=== PATIENT | female | born 1950 | race Caucasian/White ===

== ENCOUNTER 2019-12-15 18:32 | Inpatient (IN) | payer MEDICARE, OTHER ==
[~2019-12-15] VITALS: Ht 165.1 cm; Wt 81.6 kg
[2019-12-15] MEDS ORDERED: MORPHINE SULFATE INJ 4 MG/ML INJ 1ML IV NR (18:45)
[2019-12-15] MEDS ORDERED: MEROPENEM 1GM 100 ML IV SCH (18:45)
[2019-12-15 19:30] LABS: BASOPHILS # (AUTO) 0.1 (0.0-0.1); BASOPHILS % 0.9 % (0.0-1.0); EOSINOPHILS # (AUTO) 0.4 (0.0-0.4); EOSINOPHILS % 6.3 % (0.0-6.0); HEMATOCRIT 38.9 % (34.2-44.1); HEMOGLOBIN 12.8 g/dL (12.0-16.0); LYMPHOCYTES # (AUTO) 2.1 (1.0-3.2); LYMPHOCYTES % 31.4 % (18.0-39.1); MEAN CORPUSCULAR HEMOGLOBIN 28.9 pg (28-32); MEAN CORPUSCULAR HGB CONC 32.9 g/dL (31-35); MEAN CORPUSCULAR VOLUME 87.8 fL (81-99); MONOCYTES # (AUTO) 0.4 (0.2-0.8); MONOCYTES % 6.3 % (4.4-11.3); NEUTROPHILS # (AUTO) 3.6 (2.1-6.9); NEUTROPHILS % 54.9 % (38.7-80.0); PLATELET COUNT 248 x10e3/uL (140-360); RED BLOOD COUNT 4.43 x10e6/uL (3.6-5.1); RED CELL DISTRIBUTION WIDTH 13.8 % (11.7-14.4)
[2019-12-15 19:55] LABS: ALANINE AMINOTRANSFERASE 12 IU/L (0-55); ALBUMIN 4.3 g/dL (3.5-5.0); ALBUMIN/GLOBULIN RATIO 1.4 (0.8-2.0); ALKALINE PHOSPHATASE 91 IU/L (40-150); BLOOD UREA NITROGEN 14 mg/dL (7-26); BUN/CREATININE RATIO 19 (6-25); CALCIUM 9.8 mg/dL (8.4-10.2); CARBON DIOXIDE 25 mmol/L (22-29); CHLORIDE 108 mmol/L (98-107); CREATININE, SERUM 0.74 mg/dL (0.57-1.11); EST GLOMERULAR FILTRATION RATE > 60 ML/MIN (60-); GLUCOSE 125 mg/dL (74-118); SODIUM 143 mmol/L (136-145)
[2019-12-15] MEDS: SODIUM CHLORIDE 0.9% 1000ML 1,000 ML IV SCH (21:12)
[2019-12-15 21:58] LABS: CLARITY,URINE SL CLOUDY (CLEAR); COLOR,URINE YELLOW (YELLOW); LEUKOCYTE ESTERASE ,URINE NEGATIVE (NEGATIVE); NITRITE,URINE NEGATIVE (NEGATIVE)
[2019-12-15 21:59] LABS: BILIRUBIN,URINE NEGATIVE (NEGATIVE); KETONES,URINE NEGATIVE (NEGATIVE); PROTEIN,URINE DIPSTICK NEGATIVE (NEGATIVE); URINE UROBILINOGEN 0.2 mg/dL (0.2 - 1)
[2019-12-15] MEDS: ONDANSETRON HCL INJ 2MG/ML 2ML 2 MG/ML VIAL IV PRN (23:01)
[2019-12-15] MEDS: MORPHINE SULFATE 2 MG/ML SYR 1ML IV PRN (23:01)
[2019-12-16] VITALS (9 sets, daily range): BP systolic 115–136; BP diastolic 50–86
[2019-12-16] MEDS ORDERED: INFLUENZA VIRUS VAC SPLIT INJ 0.5 ML SYR IM SCH (01:30)
[2019-12-16] MEDS: SODIUM CHLORIDE 0.9% 1000ML 1,000 ML IV SCH ×3 (01:30→19:08)
[2019-12-16] MEDS ORDERED: melatonin PO (02:27)
[2019-12-16] MEDS ORDERED: HYDROCODON-ACE1 EAC9 PO (02:27)
[2019-12-16] MEDS ORDERED: GABAPENTIN300 MG PO (02:27)
[2019-12-16] MEDS ORDERED: PRINIVIL20 MG PO (02:27)
[2019-12-16] MEDS ORDERED: METHOCARBAMOL750 MG PO (02:27)
[2019-12-16] MEDS ORDERED: NORCO 5-325 TA1 EACH PO (02:27)
[2019-12-16] MEDS ORDERED: METOPROLOL SUCC25 MG PO (02:27)
[2019-12-16] MEDS ORDERED: VITAMIN D3250 MC1 PEG (02:27)
[2019-12-16] MEDS ORDERED: METFORMIN HCL500 MG PO (02:27)
[2019-12-16] MEDS ORDERED: CRESTOR10 MG PO (02:27)
[2019-12-16] MEDS ORDERED: NIFEDIPINE ER30 M1 PO (02:27)
[2019-12-16] MEDS ORDERED: NITROFURANTOIN100 MG PO (02:27)
[2019-12-16] MEDS ORDERED: TOVIAZ8 MG PO (02:27)
[2019-12-16] MEDS ORDERED: LYRICA75 MG PO (02:27)
[2019-12-16] MEDS ORDERED: NORCO 10-325 T1 EACH PO (02:29)
[2019-12-16] MEDS: ONDANSETRON HCL INJ 2MG/ML 2ML 2 MG/ML VIAL IV PRN (04:45)
[2019-12-16] MEDS: MORPHINE SULFATE 2 MG/ML SYR 1ML IV PRN ×2 (04:45→11:45)
[2019-12-16 06:40] LABS: BASOPHILS # (AUTO) 0.1 (0.0-0.1); BASOPHILS % 1.1 % (0.0-1.0); EOSINOPHILS # (AUTO) 0.4 (0.0-0.4); EOSINOPHILS % 7.5 % (0.0-6.0); HEMATOCRIT 33.8 % (34.2-44.1); HEMOGLOBIN 11.2 g/dL (12.0-16.0); LYMPHOCYTES # (AUTO) 2.3 (1.0-3.2); MEAN CORPUSCULAR HEMOGLOBIN 29.2 pg (28-32); MEAN CORPUSCULAR HGB CONC 33.1 g/dL (31-35); MONOCYTES # (AUTO) 0.4 (0.2-0.8); MONOCYTES % 7.9 % (4.4-11.3); NEUTROPHILS # (AUTO) 2.4 (2.1-6.9); NEUTROPHILS % 42.5 % (38.7-80.0); PLATELET COUNT 198 x10e3/uL (140-360); RED BLOOD COUNT 3.84 x10e6/uL (3.6-5.1); RED CELL DISTRIBUTION WIDTH 13.8 % (11.7-14.4)
[2019-12-16 07:12] LABS: ALANINE AMINOTRANSFERASE 10 IU/L (0-55); ALBUMIN 3.5 g/dL (3.5-5.0); ALBUMIN/GLOBULIN RATIO 1.3 (0.8-2.0); ALKALINE PHOSPHATASE 76 IU/L (40-150); ANION GAP 11.1 mmol/L (8-16); BLOOD UREA NITROGEN 9 mg/dL (7-26); BUN/CREATININE RATIO 15 (6-25); CALCIUM 8.5 mg/dL (8.4-10.2); CARBON DIOXIDE 26 mmol/L (22-29); CHLORIDE 110 mmol/L (98-107); CREATININE, SERUM 0.62 mg/dL (0.57-1.11); EST GLOMERULAR FILTRATION RATE > 60 ML/MIN (60-); GLUCOSE 95 mg/dL (74-118); POTASSIUM 4.1 mmol/L (3.5-5.1); SODIUM 143 mmol/L (136-145)
[2019-12-16] MEDS ORDERED: HYDRALAZINE HCL 20 MG/ML VIAL IV PRN (08:00)
[2019-12-16] MEDS ORDERED: POLYETHYLENE GLYCOL 3350 17 GM PACK PO PRN (08:00)
[2019-12-16] MEDS ORDERED: TEMAZEPAM 15 MG CAP PO PRN (08:00)
[2019-12-16] MEDS ORDERED: VITAMIN C1500 MG (08:26)
[2019-12-16] MEDS ORDERED: VITAMIN D310 MCG (08:26)
[2019-12-16] MEDS: ACETAMINOPHEN 325 MG TAB PO PRN (08:30)
[2019-12-16] MEDS: FAMOTIDINE 20 MG/2 ML VIAL IV SCH ×3 (09:00→19:08)
[2019-12-16] MEDS ORDERED: MEROPENEM 1GM 100 ML IV SCH (09:00)
[2019-12-16] MEDS: DOCUSATE SODIUM 100 MG CAP PO SCH ×2 (09:02→19:08)
[2019-12-16] MEDS ORDERED: METHOCARBAMOL 750 MG TAB PO PRN (18:30)
[2019-12-16] MEDS: MEROPENEM 1GM 100 ML IV SCH ×2 (19:08→22:00)
[2019-12-16] MEDS: GABAPENTIN 300 MG CAP PO SCH (20:51)
[2019-12-16] MEDS: SIMVASTATIN 40 MG TAB PO SCH (20:51)
[2019-12-16] MEDS: ASCORBIC ACID 500 MG TAB PO SCH (20:51)
[2019-12-16] MEDS ORDERED: MELATONIN 3 MG TAB PO PRN (21:00)
[2019-12-16] MEDS: HYDROCODONE/APAP 10MG-325MG TAB PO PRN (23:45)
[2019-12-17] VITALS (8 sets, daily range): BP systolic 128–143; BP diastolic 63–80
[2019-12-17] MEDS: MORPHINE SULFATE 2 MG/ML SYR 1ML IV PRN (00:55)
[2019-12-17 05:35] LABS: BASOPHILS % 0.8 % (0.0-1.0); EOSINOPHILS # (AUTO) 0.4 (0.0-0.4); EOSINOPHILS % 7.6 % (0.0-6.0); HEMATOCRIT 31.5 % (34.2-44.1); HEMOGLOBIN 10.3 g/dL (12.0-16.0); LYMPHOCYTES # (AUTO) 2.2 (1.0-3.2); LYMPHOCYTES % 46.2 % (18.0-39.1); MEAN CORPUSCULAR HEMOGLOBIN 28.6 pg (28-32); MEAN CORPUSCULAR HGB CONC 32.7 g/dL (31-35); MEAN CORPUSCULAR VOLUME 87.5 fL (81-99); MONOCYTES # (AUTO) 0.4 (0.2-0.8); MONOCYTES % 7.6 % (4.4-11.3); NEUTROPHILS # (AUTO) 1.8 (2.1-6.9); NEUTROPHILS % 37.6 % (38.7-80.0); PLATELET COUNT 191 x10e3/uL (140-360); RED CELL DISTRIBUTION WIDTH 13.6 % (11.7-14.4)
[2019-12-17] MEDS ORDERED: BENZONATATE 100 MG CAP PO PRN (05:45)
[2019-12-17 06:03] LABS: ANION GAP 10.8 mmol/L (8-16); BLOOD UREA NITROGEN 7 mg/dL (7-26); BUN/CREATININE RATIO 12 (6-25); CALCIUM 8.7 mg/dL (8.4-10.2); CARBON DIOXIDE 27 mmol/L (22-29); CHLORIDE 110 mmol/L (98-107); CHOLESTEROL 111 MD/DL (0-199); CREATININE, SERUM 0.59 mg/dL (0.57-1.11); EST GLOMERULAR FILTRATION RATE > 60 ML/MIN (60-); GLUCOSE 101 mg/dL (74-118); HDL CHOLESTEROL 37 MG/DL (40-60); LDL CHOLESTEROL 49 MG/DL (60-130); MAGNESIUM 1.6 MG/DL (1.3-2.1); PHOSPHORUS 3.1 MG/DL (2.3-4.7); POTASSIUM 3.8 mmol/L (3.5-5.1); SODIUM 144 mmol/L (136-145); TRIGLYCERIDES 125 MG/DL (0-149)
[2019-12-17] MEDS: MEROPENEM 1GM 100 ML IV SCH ×3 (06:09→21:42)
[2019-12-17] MEDS ORDERED: ALBUTEROL SULFATE HFA 8GM INHALATION AEROSOL INH PRN (06:15)
[2019-12-17 06:23] LABS: THYROID STIMULATING HORMONE 1.473 uIU/mL (0.350-4.940)
[2019-12-17] MEDS: METFORMIN HCL 500 MG TAB PO SCH ×2 (09:00→17:01)
[2019-12-17] MEDS ORDERED: NON-FORMULARY MEDICATION (Cholecalciferol (Vitamin D3) (Vitamin D3) 1 CAP) PEG SCH (09:00)
[2019-12-17] MEDS: FESOTERODINE FUMARATE PO SCH (09:00)
[2019-12-17] MEDS: DOCUSATE SODIUM 100 MG CAP PO SCH ×2 (09:46→16:23)
[2019-12-17] MEDS: PREGABALIN 75 MG CAP PO SCH ×2 (09:47→16:23)
[2019-12-17] MEDS: GABAPENTIN 300 MG CAP PO SCH ×3 (09:47→21:42)
[2019-12-17] MEDS: METOPROLOL SUCCINATE 25 MG TAB XL PO SCH (09:48)
[2019-12-17] MEDS: LISINOPRIL 20 MG TAB PO SCH (09:48)
[2019-12-17] MEDS: CHOLECALCIFEROL 1,000 UNIT TAB PO SCH (09:49)
[2019-12-17] MEDS: FAMOTIDINE 20 MG/2 ML VIAL IV SCH ×2 (09:49→16:23)
[2019-12-17] MEDS: ASCORBIC ACID 500 MG TAB PO SCH ×3 (09:49→21:42)
[2019-12-17] MEDS: HYDROCODONE/APAP 10MG-325MG TAB PO PRN ×3 (10:29→22:55)
[2019-12-17] MEDS ORDERED: ASPIRIN EC81 MG PO (10:35)
[2019-12-17] MEDS ORDERED: CLOPIDOGREL75 MG PO (10:35)
[2019-12-17] MEDS: NIFEDIPINE CR 30 MG TAB PO SCH (12:18)
[2019-12-17] MEDS: ASPIRIN 81 MG ENTERIC COATED PO SCH (16:23)
[2019-12-17] MEDS: CLOPIDOGREL BISULFATE 75 MG TAB PO SCH (16:23)
[2019-12-17] MEDS: SIMVASTATIN 40 MG TAB PO SCH (21:42)
[2019-12-18 01:46] VITALS: BP 129/66
[2019-12-18] MEDS: ACETAMINOPHEN 325 MG TAB PO PRN (03:25)
[2019-12-18] MEDS: MEROPENEM 1GM 100 ML IV SCH ×2 (05:32→13:00)
[2019-12-18 06:05] LABS: BASOPHILS % 0.8 % (0.0-1.0); EOSINOPHILS # (AUTO) 0.4 (0.0-0.4); EOSINOPHILS % 7.4 % (0.0-6.0); HEMATOCRIT 34.6 % (34.2-44.1); HEMOGLOBIN 11.5 g/dL (12.0-16.0); LYMPHOCYTES # (AUTO) 1.8 (1.0-3.2); LYMPHOCYTES % 33.6 % (18.0-39.1); MEAN CORPUSCULAR HEMOGLOBIN 29.3 pg (28-32); MEAN CORPUSCULAR HGB CONC 33.2 g/dL (31-35); MEAN CORPUSCULAR VOLUME 88.3 fL (81-99); MONOCYTES # (AUTO) 0.4 (0.2-0.8); MONOCYTES % 8.2 % (4.4-11.3); NEUTROPHILS # (AUTO) 2.6 (2.1-6.9); NEUTROPHILS % 49.8 % (38.7-80.0); PLATELET COUNT 193 x10e3/uL (140-360); RED BLOOD COUNT 3.92 x10e6/uL (3.6-5.1); RED CELL DISTRIBUTION WIDTH 13.7 % (11.7-14.4)
[2019-12-18 06:22] VITALS: BP 108/70
[2019-12-18 06:44] LABS: ANION GAP 12.8 mmol/L (8-16); BLOOD UREA NITROGEN 10 mg/dL (7-26); BUN/CREATININE RATIO 16 (6-25); CARBON DIOXIDE 27 mmol/L (22-29); CHLORIDE 107 mmol/L (98-107); CREATININE, SERUM 0.62 mg/dL (0.57-1.11); EST GLOMERULAR FILTRATION RATE > 60 ML/MIN (60-); GLUCOSE 101 mg/dL (74-118); POTASSIUM 3.8 mmol/L (3.5-5.1); SODIUM 143 mmol/L (136-145)
[2019-12-18] MEDS: HYDROCODONE/APAP 10MG-325MG TAB PO PRN ×2 (07:06→13:14)
[2019-12-18 08:14] VITALS: BP 131/72
[2019-12-18 08:26] VITALS: BP 131/72
[2019-12-18] MEDS: NIFEDIPINE CR 30 MG TAB PO SCH (09:00)
[2019-12-18] MEDS: METFORMIN HCL 500 MG TAB PO SCH ×2 (09:00→16:32)
[2019-12-18] MEDS: FESOTERODINE FUMARATE PO SCH (09:00)
[2019-12-18] MEDS: GABAPENTIN 300 MG CAP PO SCH ×2 (09:23→14:33)
[2019-12-18] MEDS: PREGABALIN 75 MG CAP PO SCH ×2 (09:23→16:32)
[2019-12-18] MEDS: CLOPIDOGREL BISULFATE 75 MG TAB PO SCH (09:23)
[2019-12-18] MEDS: DOCUSATE SODIUM 100 MG CAP PO SCH ×2 (09:23→16:32)
[2019-12-18] MEDS: LISINOPRIL 20 MG TAB PO SCH (09:23)
[2019-12-18] MEDS: ASCORBIC ACID 500 MG TAB PO SCH ×2 (09:24→14:33)
[2019-12-18] MEDS: METOPROLOL SUCCINATE 25 MG TAB XL PO SCH (09:24)
[2019-12-18] MEDS: ASPIRIN 81 MG ENTERIC COATED PO SCH (09:24)
[2019-12-18] MEDS: CHOLECALCIFEROL 1,000 UNIT TAB PO SCH (09:24)
[2019-12-18] MEDS: FAMOTIDINE 20 MG/2 ML VIAL IV SCH (09:25)
[2019-12-18] MEDS ORDERED: FAMOTIDINE 20 MG TAB PO SCH (12:00)
[2019-12-18] MEDS ORDERED: ONDANSETRON HCL 4 MG ORAL DISINTEGRATING TAB PO PRN (12:00)
[2019-12-18 12:21] VITALS: BP 120/64
[2019-12-18] MEDS ORDERED: MELATONIN 3 MG TAB PO PRN (14:30)
[2019-12-18] MEDS ORDERED: MORPHINE SULFATE INJ 4 MG/ML INJ 1ML IV PRN (14:30)
[2019-12-18 15:53] VITALS: BP 130/68
[2019-12-18] MEDS ORDERED: FOSFOMYCIN TROMETHAMINE 3 GM PACKET PO ONE (16:15)
[2019-12-18] MEDS ORDERED: HIPREX1 GM PO (17:22)
[2019-12-18] MEDS ORDERED: INFLUENZA VIRUS VAC SPLIT INJ 0.5 ML SYR IM SCH (17:30)
[2019-12-18] MEDS ORDERED: SIMVASTATIN 20 MG TAB PO SCH (21:00)
== END 2019-12-18 17:57 | disposition home or self-care (01) | DRG 690 ==
LOC: ER 18:44 → ERHOLD 20:53 → MED/SURG3 23:54
PROVIDERS: ADMIT Internal Medicine; ATTEND Internal Medicine
DX: N30.90 Cystitis, unspecified without hematuria (principal); N31.9 Neuromuscular dysfunction of bladder, unspecified; I10 Essential (primary) hypertension; K21.9 Gastro-esophageal reflux disease without esophagitis; E78.5 Hyperlipidemia, unspecified; Z74.09 Other reduced mobility; E11.9 Type 2 diabetes mellitus without complications; N39.498 Other specified urinary incontinence; Z86.73 Personal history of transient ischemic attack (TIA), and cerebral infarction without residual deficits
CPT/HCPCS: 36415; 71045; 80048; 80053; 80061; 81001; 82948; 83036; 83735; 84100; 84443; 85025; 87086; 99284; J2270; J2405; J7030; U0002

== ENCOUNTER 2023-11-04 12:17 | Inpatient (IN) | payer MEDICARE, OTHER ==
[2023-10-29 15:02] LABS: BASOPHILS # (AUTO) 0.1 (0.0-0.1); BASOPHILS % 0.8 % (0.0-1.0); EOSINOPHILS # (AUTO) 0.5 (0.0-0.4); EOSINOPHILS % 5.9 % (0.0-6.0); HEMATOCRIT 41.2 % (34.2-44.1); HEMOGLOBIN 13.6 g/dL (12.0-16.0); LYMPHOCYTES # (AUTO) 2.5 (1.0-3.2); LYMPHOCYTES % 32.5 % (18.0-39.1); MEAN CORPUSCULAR HEMOGLOBIN 31.6 pg (28-32); MEAN CORPUSCULAR VOLUME 95.8 fL (81-99); MONOCYTES # (AUTO) 0.6 (0.2-0.8); NEUTROPHILS % 52.5 % (38.7-80.0); PLATELET COUNT 252 x10e3/uL (140-360); WHITE BLOOD COUNT 7.61 x10e3/uL (4.8-10.8)
[2023-11-04] VITALS (9 sets, daily range): BP systolic 117–157; BP diastolic 58–78; PULSE 66–70; RESP 12–22; TEMP 96.7; O2SAT 94–99
[~2023-11-04] VITALS: Ht 165.1 cm; Wt 79.4 kg
[~2023-11-04 12:17] MED LIST: ALBUTEROL0.63 MG/3 NEB; ASPIRIN EC81 MG PO; CLONIDINE HCL0.1 MG PO; CLOPIDOGREL75 MG PO; CRESTOR10 MG PO; FESOTERODINE FUM8 MG PO; GABAPENTIN300 MG PO; GOLYTELY SOLU4000 M1 PO; HIPREX1 GM PO; HYDRALAZINE HCL50 MG PO; HYDROCODON-ACE1 EAC9 PO; LOSARTAN POTASS25 MG PO; LYRICA75 MG PO; METFORMIN HCL500 MG PO; METHOCARBAMOL750 MG PO; METOPROLOL SUCC25 MG PO; NIFEDIPINE ER30 M1 PO; NITROFURANTOIN100 MG PO; NORCO 10-325 T1 EACH PO; NORCO 5-325 TA1 EACH PO; ONDANSETRON ODT4 MG PO; PRINIVIL20 MG PO; PROTONIX20 MG PO; TOVIAZ8 MG PO; VITAMIN C1500 MG; VITAMIN D310 MCG; VITAMIN D3250 MC1 PEG; melatonin PO
[2023-11-04] MEDS: LACTATED RINGER'S 1,000 ML ONE (13:27)
[2023-11-04] MEDS: GENTAMICIN 80MG/NS 100 ML 200 ML IV ONE (13:28)
[2023-11-04] MEDS ORDERED: EPINEPHRINE HCL 1:1000 1ML 1 MG/ML AMP ONE (13:49)
[2023-11-04] MEDS ORDERED: FAMOTIDINE 20 MG/2 ML VIAL IV ONE (16:31)
[2023-11-04] MEDS ORDERED: ACETAMINOPHEN 1000 MG/100 ML IV ONE (16:31)
[2023-11-04] MEDS ORDERED: DEXAMETHASONE SOD PHOS INJ 4 MG/ML SDV ONE (16:31)
[2023-11-04] MEDS ORDERED: ONDANSETRON HCL INJ 2MG/ML 2ML 2 MG/ML VIAL ONE (16:31)
[2023-11-04] MEDS ORDERED: LIDOCAINE HCL 2% LOCAL INJ 5 ML SDV VIAL INJ ONE (16:31)
[2023-11-04] MEDS ORDERED: DEXMEDETOMIDINE HCL 200 MCG/2 ML VIAL ONE (16:31)
[2023-11-04] MEDS ORDERED: ROCURONIUM BROMIDE 10 MG/ML 5ML VIAL IV ONE (16:31)
[2023-11-04] MEDS ORDERED: PROPOFOL IV EMULSION 10 MG/ML 20 ML VIAL ONE (16:31)
[2023-11-04] MEDS ORDERED: SUGAMMADEX SODIUM 200 MG/2 ML VIAL IV ONE ×2 (16:31→17:33)
[2023-11-04] MEDS ORDERED: FENTANYL CITRATE/PF 100MCG/2 ML INJ ONE (16:50)
[2023-11-04] MEDS ORDERED: ACETAMINOPHEN 1000 MG/100 ML 0 ML IV ONE (16:53)
[2023-11-04] MEDS ORDERED: MIDAZOLAM HCL 2 MG/2 ML VIAL ONE (16:56)
[2023-11-04] MEDS ORDERED: Morphine 10mg syringe 10 MG/ML INJ ONE (16:56)
[2023-11-04] MEDS ORDERED: ONDANSETRON HCL INJ 2MG/ML 2ML 2 MG/ML VIAL IV PRN (17:00)
[2023-11-04] MEDS ORDERED: ACETAMINOPHEN 1000 MG/100 ML IV PRN (17:00)
[2023-11-04] MEDS ORDERED: NALOXONE HCL INJ 0.4 MG/ML AMP IV PRN (17:00)
[2023-11-04] MEDS: SODIUM CHLORIDE 0.9% 250ML IRRIG IR SCH (17:00)
[2023-11-04] MEDS ORDERED: DIPHENHYDRAMINE HCL INJ 50 MG/ML VIAL IM PRN (17:00)
[2023-11-04] MEDS ORDERED: BUPIVACAINE 0.25% 30ML SDV ONE (17:49)
[2023-11-04] MEDS ORDERED: LIDOCAINE 2%/ EPINEPHRINE 20ML MDV ONE (17:49)
[2023-11-04] MEDS ORDERED: SODIUM CHLORIDE 0.9% INJ 10 ML VIAL ONE (17:49)
[2023-11-04] MEDS ORDERED: KETAMINE 50MG/5ML SYR ONE (18:26)
[2023-11-04] MEDS: MORPHINE SULFATE 1 MG/ML 30ML PCA IV PRN (18:33)
[2023-11-04] MEDS: SODIUM CHLORIDE 0.9% 1000ML 1,000 ML IV SCH (19:43)
[2023-11-05] VITALS (26 sets, daily range): BP systolic 99–207; BP diastolic 54–185; PULSE 64–84; RESP 11–25; TEMP 97–98.6; O2SAT 96–100
[2023-11-05 06:07] LABS: BASOPHILS % 0.2 % (0.0-1.0); HEMATOCRIT 36.4 % (34.2-44.1); HEMOGLOBIN 12.1 g/dL (12.0-16.0); LYMPHOCYTES # (AUTO) 1.2 (1.0-3.2); LYMPHOCYTES % 10.4 % (18.0-39.1); MEAN CORPUSCULAR HEMOGLOBIN 31.6 pg (28-32); MEAN CORPUSCULAR HGB CONC 33.2 g/dL (31-35); MONOCYTES # (AUTO) 0.7 (0.2-0.8); MONOCYTES % 6.1 % (4.4-11.3); NEUTROPHILS # (AUTO) 9.9 (2.1-6.9); PLATELET COUNT 205 x10e3/uL (140-360); RED BLOOD COUNT 3.83 x10e6/uL (3.6-5.1); RED CELL DISTRIBUTION WIDTH 12.8 % (11.7-14.4); WHITE BLOOD COUNT 11.95 x10e3/uL (4.8-10.8)
[2023-11-05 06:44] LABS: ANION GAP 11.9 mmol/L (8-16); CREATININE, SERUM 0.75 mg/dL (0.57-1.11); POTASSIUM 3.9 mmol/L (3.5-5.1)
[2023-11-06] VITALS (29 sets, daily range): BP systolic 133–186; BP diastolic 60–106; PULSE 66–94; RESP 12–21; TEMP 98–99; O2SAT 94–100
[2023-11-06 08:16] LABS: BASOPHILS % 0.5 % (0.0-1.0); EOSINOPHILS # (AUTO) 0.1 (0.0-0.4); EOSINOPHILS % 1.2 % (0.0-6.0); HEMATOCRIT 33.2 % (34.2-44.1); HEMOGLOBIN 10.8 g/dL (12.0-16.0); LYMPHOCYTES # (AUTO) 2.9 (1.0-3.2); LYMPHOCYTES % 37.4 % (18.0-39.1); MEAN CORPUSCULAR HEMOGLOBIN 31.8 pg (28-32); MEAN CORPUSCULAR HGB CONC 32.5 g/dL (31-35); MEAN CORPUSCULAR VOLUME 97.6 fL (81-99); MONOCYTES # (AUTO) 0.7 (0.2-0.8); MONOCYTES % 8.8 % (4.4-11.3); NEUTROPHILS % 51.8 % (38.7-80.0); PLATELET COUNT 180 x10e3/uL (140-360); RED CELL DISTRIBUTION WIDTH 12.8 % (11.7-14.4); WHITE BLOOD COUNT 7.64 x10e3/uL (4.8-10.8)
[2023-11-06 08:36] LABS: ANION GAP 8.5 mmol/L (8-16); CALCIUM 8.2 mg/dL (8.4-10.2); CREATININE, SERUM 0.62 mg/dL (0.57-1.11); POTASSIUM 3.5 mmol/L (3.5-5.1)
[2023-11-06] MEDS: HYDROCODONE/APAP 10MG-325MG TAB PO PRN (15:19)
[2023-11-07] VITALS (27 sets, daily range): BP systolic 114–195; BP diastolic 51–107; PULSE 53–85; RESP 12–22; TEMP 97.5–99.5; O2SAT 92–98
[2023-11-07 06:54] LABS: BASOPHILS % 0.6 % (0.0-1.0); EOSINOPHILS # (AUTO) 0.3 (0.0-0.4); EOSINOPHILS % 4.9 % (0.0-6.0); HEMATOCRIT 31.5 % (34.2-44.1); HEMOGLOBIN 10.4 g/dL (12.0-16.0); LYMPHOCYTES # (AUTO) 2.6 (1.0-3.2); LYMPHOCYTES % 38.6 % (18.0-39.1); MEAN CORPUSCULAR HEMOGLOBIN 31.6 pg (28-32); MEAN CORPUSCULAR VOLUME 95.7 fL (81-99); MONOCYTES # (AUTO) 0.7 (0.2-0.8); MONOCYTES % 10.7 % (4.4-11.3); NEUTROPHILS % 44.9 % (38.7-80.0); PLATELET COUNT 157 x10e3/uL (140-360); RED BLOOD COUNT 3.29 x10e6/uL (3.6-5.1); RED CELL DISTRIBUTION WIDTH 12.5 % (11.7-14.4); WHITE BLOOD COUNT 6.71 x10e3/uL (4.8-10.8)
[2023-11-07 07:21] LABS: ANION GAP 10.5 mmol/L (8-16); CALCIUM 8.4 mg/dL (8.4-10.2); CREATININE, SERUM 0.61 mg/dL (0.57-1.11); POTASSIUM 3.5 mmol/L (3.5-5.1)
[2023-11-07] MEDS: BUPIVACAINE LIPOSOME/PF 266 MG/20 ML IJ ONE (08:14)
[2023-11-07] MEDS: HYDRALAZINE HCL 20 MG/ML VIAL IV PRN (08:22)
[2023-11-07] MEDS ORDERED: METHOCARBAMOL 750 MG TAB PO PRN (08:30)
[2023-11-07] MEDS ORDERED: MAGNESIUM HYDROXIDE 30 ML UDC PO PRN (08:30)
[2023-11-07] MEDS: SENNA-S TABLET PO SCH (09:00)
[2023-11-07] MEDS: PANTOPRAZOLE SOD 40 MG TABEC PO SCH (09:04)
[2023-11-07] MEDS: NIFEDIPINE CR 30 MG TAB PO ONE (09:04)
[2023-11-07] MEDS: METOPROLOL SUCCINATE 25 MG TAB XL PO SCH (09:06)
[2023-11-07] MEDS: Morphine 4mg INJECTION 4 MG/ML INJ IV PRN (11:34)
[2023-11-07] MEDS: ONDANSETRON HCL INJ 2MG/ML 2ML 2 MG/ML VIAL IV PRN (11:35)
[2023-11-07] MEDS: ACETAMINOPHEN 325 MG TAB PO PRN (12:43)
[2023-11-07] MEDS ORDERED: CLONIDINE HCL 0.1 MG TAB PO PRN (13:30)
[2023-11-07] MEDS: ACETAMIN/BUTALBITAL/CAFFEINE TAB PO ONE (15:35)
[2023-11-07] MEDS: METOPROLOL TARTRATE 50 MG TAB PO SCH (15:42)
[2023-11-07] MEDS: GABAPENTIN 300 MG CAP PO SCH (19:26)
[2023-11-07] MEDS: CRESTOR 10MG PO SCH (19:26)
[2023-11-07] MEDS ORDERED: SIMVASTATIN 40 MG TAB PO SCH (21:00)
[2023-11-07] MEDS: ACETAMIN/BUTALBITAL/CAFFEINE TAB PO PRN (23:06)
[2023-11-08] VITALS (13 sets, daily range): BP systolic 132–159; BP diastolic 56–89; PULSE 54–65; RESP 13–19; TEMP 97.8–98.6; O2SAT 94–97
[2023-11-08] MEDS: NIFEDIPINE CR 30 MG TAB PO SCH (05:18)
[2023-11-08 06:06] LABS: BASOPHILS % 0.5 % (0.0-1.0); EOSINOPHILS # (AUTO) 0.4 (0.0-0.4); EOSINOPHILS % 6.9 % (0.0-6.0); HEMATOCRIT 32.4 % (34.2-44.1); HEMOGLOBIN 10.6 g/dL (12.0-16.0); LYMPHOCYTES # (AUTO) 2.2 (1.0-3.2); MEAN CORPUSCULAR HEMOGLOBIN 31.5 pg (28-32); MEAN CORPUSCULAR HGB CONC 32.7 g/dL (31-35); MEAN CORPUSCULAR VOLUME 96.1 fL (81-99); MONOCYTES # (AUTO) 0.6 (0.2-0.8); MONOCYTES % 9.6 % (4.4-11.3); NEUTROPHILS % 47.8 % (38.7-80.0); PLATELET COUNT 172 x10e3/uL (140-360); RED BLOOD COUNT 3.37 x10e6/uL (3.6-5.1); RED CELL DISTRIBUTION WIDTH 12.4 % (11.7-14.4); WHITE BLOOD COUNT 6.26 x10e3/uL (4.8-10.8)
[2023-11-08 06:47] LABS: ANION GAP 11.6 mmol/L (8-16); CALCIUM 8.8 mg/dL (8.4-10.2); CREATININE, SERUM 0.61 mg/dL (0.57-1.11); POTASSIUM 3.6 mmol/L (3.5-5.1)
== END 2023-11-08 10:07 | DRG 664 ==
LOC: OR 12:17 → PACU V 15:15 → ICU 19:26
PROVIDERS: ADMIT Internal Medicine; ATTEND Internal Medicine
PROC: 0DB80ZZ Excision of Small Intestine, Open Approach (ICD-10-PCS; 2023-11-04)
PROC: 0T9B00Z Drainage of Bladder with Drainage Device, Open Approach (ICD-10-PCS; principal; 2023-11-04 15:55)
DX: R33.9 Retention of urine, unspecified (principal); E83.51 Hypocalcemia; N31.9 Neuromuscular dysfunction of bladder, unspecified; D64.9 Anemia, unspecified; I25.10 Atherosclerotic heart disease of native coronary artery without angina pectoris; I10 Essential (primary) hypertension; I16.0 Hypertensive urgency; E78.5 Hyperlipidemia, unspecified; K21.9 Gastro-esophageal reflux disease without esophagitis; M51.36 Other intervertebral disc degeneration, lumbar region; R53.81 Other malaise; M54.31 Sciatica, right side; F41.9 Anxiety disorder, unspecified; Z96.0 Presence of urogenital implants; Z87.440 Personal history of urinary (tract) infections; E66.9 Obesity, unspecified; Z68.29 Body mass index [BMI] 29.0-29.9, adult; Z90.710 Acquired absence of both cervix and uterus; Z90.49 Acquired absence of other specified parts of digestive tract
CPT/HCPCS: 36415; 70450; 71046; 80048; 85025; 88304; 93005; 94799; 99252; J0171; J0360; J0690; J1100; J1580; J2001; J2250; J2270; J2405; J7030

== ENCOUNTER 2023-12-18 21:19 | Emergency (ER) | payer MEDICARE, OTHER ==
[~2023-12-18] VITALS: Ht 165.1 cm; Wt 79.4 kg
[2023-12-18 21:29] VITALS: TEMP 98.5
[2023-12-18 21:58] LABS: ALBUMIN 3.9 g/dL (3.5-5.0); ALBUMIN/GLOBULIN RATIO 1.2 (0.8-2.0); ANION GAP 14.3 mmol/L (8-16); BILIRUBIN,TOTAL 0.4 mg/dL (0.2-1.2); CALCIUM 9.5 mg/dL (8.4-10.2); CREATININE, SERUM 0.71 mg/dL (0.57-1.11); TOTAL PROTEIN 7.2 g/dL (6.5-8.1)
[2023-12-18 22:03] LABS: POTASSIUM 3.3 mmol/L (3.5-5.1)
[2023-12-18 22:21] LABS: BASOPHILS % 0.7 % (0.0-1.0); EOSINOPHILS # (AUTO) 0.4 (0.0-0.4); EOSINOPHILS % 6.9 % (0.0-6.0); HEMATOCRIT 35.4 % (34.2-44.1); HEMOGLOBIN 11.7 g/dL (12.0-16.0); LYMPHOCYTES # (AUTO) 2.3 (1.0-3.2); LYMPHOCYTES % 38.2 % (18.0-39.1); MEAN CORPUSCULAR HEMOGLOBIN 31.1 pg (28-32); MEAN CORPUSCULAR HGB CONC 33.1 g/dL (31-35); MEAN CORPUSCULAR VOLUME 94.1 fL (81-99); MONOCYTES # (AUTO) 0.5 (0.2-0.8); MONOCYTES % 7.9 % (4.4-11.3); NEUTROPHILS # (AUTO) 2.8 (2.1-6.9); NEUTROPHILS % 46.1 % (38.7-80.0); PLATELET COUNT 235 x10e3/uL (140-360); RED BLOOD COUNT 3.76 x10e6/uL (3.6-5.1); RED CELL DISTRIBUTION WIDTH 13.5 % (11.7-14.4)
[2023-12-18 23:21] VITALS: PULSE 62; RESP 17
[2023-12-18] MEDS ORDERED: IOPAMIDOL 370 MG/ML 100 ML INFUS..BTL INJ ONE (23:27)
[2023-12-19 01:33] VITALS: BP 165/81; PULSE 60; RESP 19; TEMP 98.3; O2SAT 96
== END 2023-12-19 01:49 | disposition home or self-care (01) ==
LOC: ER 21:27
DX: Z48.01 Encounter for change or removal of surgical wound dressing (principal); R10.30 Lower abdominal pain, unspecified; K57.90 Diverticulosis of intestine, part unspecified, without perforation or abscess without bleeding; N83.202 Unspecified ovarian cyst, left side; N83.201 Unspecified ovarian cyst, right side; K76.0 Fatty (change of) liver, not elsewhere classified
CPT/HCPCS: 36415; 74177; 80053; 83690; 85025; 99283; Q9967